=== PATIENT | female | born 1960 | race Two or more races ===

== ENCOUNTER 2019-09-21 07:14 | Day surgery (SDC) | payer MEDICAID ==
[2019-09-13 11:41] LABS: BASOPHILS # (AUTO) 0.1 X10'3 (0-0.2); BASOPHILS % (AUTO) 1.1 % (0-1); EOSINOPHILS # (AUTO) 0.3 X10'3 (0-0.9); EOSINOPHILS % (AUTO) 2.5 % (0-6); LYMPHOCYTES # (AUTO) 3.7 X10'3 (1.1-4.8); LYMPHOCYTES % (AUTO) 28.4 % (21-51); MEAN CORPUSCULAR HEMOGLOBIN 28.8 PG (27.0-31.0); MEAN CORPUSCULAR VOLUME 87.2 FL (78-98); MEAN PLATELET VOLUME 8.7 FL (7.4-10.4); MONOCYTES # (AUTO) 0.9 X10'3 (0-0.9); NEUTROPHILS # (AUTO) 7.9 X10'3 (1.8-7.7); PRE OP HEMOGLOBIN 14.5 g/dL (12.0-16.0); PRE OP PLATELET COUNT 431 X10'3 (140-440); RED BLOOD COUNT 5.04 X10'6 (4.20-5.60)
[2019-09-13 11:51] LABS: ALBUMIN 4.1 G/DL (3.4-5.0); ALBUMIN/GLOBULIN RATIO 0.9 (1.1-1.5); ALKALINE PHOSPHATASE 117 IU/L (46-116); BLOOD UREA NITROGEN 12 MG/DL (7-18); BUN/CREATININE RATIO 17.9 (6.6-38.0); CHLORIDE 104 MMOL/L (99-107); CREATININE 0.67 MG/DL (0.40-0.90); PRE OP ALT 47 U/L (30-65); PRE OP ANION GAP 11 (8-16); PRE OP AST 36 U/L (10-37); PRE OP BILIRUB, TOTAL 0.3 MG/DL (0.0-1.0); PRE OP GLUCOSE 101 MG/DL (70-104); PRE OP POTASSIUM 4.2 MMOL/L (3.4-5.1); PRE OP SODIUM 142 MMOL/L (135-145); TOTAL CARBON DIOXIDE 26.9 MMOL/L (24-32); TOTAL PROTEIN 8.9 G/DL (6.4-8.2); eGFR 90 ML/MIN
[~2019-09-21] VITALS: Ht 152.4 cm; Wt 72.9 kg
[2019-09-21] VITALS (9 sets, daily range): BP systolic 124–149; BP diastolic 67–83
[~2019-09-21 07:14] MED LIST: ATOR40TA72 PO; LISI-600 PO; METF500T PO; NAPR220T67 PO; PANT20TA3 PO; SITA100T11 PO; cefazolin/dext.iso 2gm/50ml 50 ML IV ONE; famotidine 20mg tablet PO ONE; ringers solution, lacted 1,000 ML IV SCH; vancomycin inj 1,500 MG in normal saline 300ml IV soln IV ONE
[2019-09-21] MEDS ORDERED: LIDOcaine 1% (10mg/ml) 2ml vial ONE (07:44)
[2019-09-21] MEDS ORDERED: ringers solution, lacted 1,000 ML IV SCH (08:44)
[2019-09-21] MEDS ORDERED: ondansetron/PF 4mg/2ml inj IV PRN (08:45)
[2019-09-21] MEDS ORDERED: hydrALAZINE 20mg/ml inj. IV PRN (08:45)
[2019-09-21] MEDS ORDERED: labetalol 20mg/4ml (5mg/ml) syringe IV PRN (08:45)
[2019-09-21] MEDS ORDERED: morphine 2 MG/ML inj. syringe IV PRN (08:45)
[2019-09-21] MEDS ORDERED: fentaNYL/PF 50MCG/1 ML 2ML syringe IV PRN ×2 (08:45)
[2019-09-21] MEDS ORDERED: morphine 4 MG/ML inj SYRINge IV PRN (08:45)
[2019-09-21] MEDS ORDERED: triamcinolone acetonide 40mg/ml inj ONE (09:09)
[2019-09-21] MEDS ORDERED: BUPIVAcaine/PF 2.5 mg/ml (0.25%) 30ml vial ONE (09:09)
[2019-09-21] MEDS ORDERED: sevoflurane 250ml liquid IH ONE (09:31)
[2019-09-21] MEDS ORDERED: dexamethasone sod phosphate 10mg/ml inj ONE (09:31)
[2019-09-21] MEDS ORDERED: fentaNYL/PF 50MCG/1 ML 2ML syringe ONE (09:39)
[2019-09-21] MEDS ORDERED: midazolam 2 mg/2 ml injection ONE (09:39)
[2019-09-21] MEDS ORDERED: LIDOcaine 2% (20mg/ml) 5ml vial ONE (09:44)
[2019-09-21] MEDS ORDERED: propofol inj 20 ML IV ONE (09:44)
[2019-09-21] MEDS ORDERED: ondansetron/PF 4mg/2ml inj ONE (09:45)
--- NOTE | 2019-09-21 10:40 | NUR ---
Received from OR via BED , accompanied by Anesthesiologist DR HAMEED and report given by Anesthesiolgist. PATIENT WAKING UP, DENIES PAIN, V/S WNL, NEUROVASCULAR CHECKS INTACT, 20G PIV LUE , DRESSING TO KNEE CDI W/ COLD POWDER PACK
--- NOTE | 2019-09-21 11:50 | NUR ---
PATIENT A&OX4, DENIES PAIN, V/S WNL, NEUROVASCULAR CHECKS INTACT, 20G PIV LUE D/C , DRESSING TO RIGHT KNEE CDI W/ COLD POWDER PACK . I HAVE REVIEWED D/C INSTRUCTIONS WITH PATIENT AND FAMILY AND THEY HAVE VERBALIZED UNDERSTANDING. PATIENT D/C HOME WITH ALL BELONGINGS AND FAMILY GAVE TRANSPORT HOME.
== END 2019-09-21 11:50 | disposition home or self-care (01) ==
LOC: PAS 07:14
PROVIDERS: ATTEND Orthopaedic Surgery
DX: S83.241A Other tear of medial meniscus, current injury, right knee, initial encounter (principal); M25.561 Pain in right knee; I10 Essential (primary) hypertension; K21.9 Gastro-esophageal reflux disease without esophagitis; E78.5 Hyperlipidemia, unspecified; M17.0 Bilateral primary osteoarthritis of knee; E66.8 Other obesity; Z68.35 Body mass index [BMI] 35.0-35.9, adult
CPT/HCPCS: 29873; 29879; 29880; 36415; 80053; 82948; 85025; J1100; J2001; J2250; J2270; J2405; J2704; J3010; J3301; J3370; J3490; A4215; A4618; A6250; A6449; A7000; J7120

== ENCOUNTER 2022-05-08 14:21 | Emergency (ER) | payer MEDICAID ==
[~2022-05-08] VITALS: Ht 152.4 cm; Wt 77.3 kg
[~2022-05-08 14:21] MED LIST changes: -LISI-600 PO; +LISI20TA28 PO; +PANT20TA18 PO; -PANT20TA3 PO; -cefazolin/dext.iso 2gm/50ml 50 ML IV ONE; -famotidine 20mg tablet PO ONE; -ringers solution, lacted 1,000 ML IV SCH; -vancomycin inj 1,500 MG in normal saline 300ml IV soln IV ONE
[2022-05-08 14:50] VITALS: BP 141/70
== END 2022-05-08 19:19 | disposition home or self-care (01) ==
LOC: ER 14:21
DX: S92.901A Unspecified fracture of right foot, initial encounter for closed fracture (principal); E78.00 Pure hypercholesterolemia, unspecified; I10 Essential (primary) hypertension; E11.9 Type 2 diabetes mellitus without complications; Z90.89 Acquired absence of other organs; Z79.899 Other long term (current) drug therapy; W19.XXXA Unspecified fall, initial encounter; Y93.89 Activity, other specified; Y92.89 Other specified places as the place of occurrence of the external cause; Y99.8 Other external cause status
CPT/HCPCS: 29515; 73630; 99283; A6449

== ENCOUNTER 2023-07-17 09:57 | Emergency (ER) | payer MEDICAID ==
[~2023-07-17] VITALS: Ht 152.4 cm; Wt 76.9 kg
[2023-07-17] MEDS ORDERED: ondansetron 4mg rapidly disintigrating tab PO ONE (10:10)
[2023-07-17 10:49] LABS: EOSINOPHILS % (AUTO) 0.7 % (0-6); HEMATOCRIT 43.8 % (35.0-45.0); HEMOGLOBIN 14.4 g/dl (12.0-16.0); LYMPHOCYTES % (AUTO) 5.3 % (21-51); MEAN CORPUSCULAR HEMOGLOBIN 28.8 PG (27.0-31.0); MEAN CORPUSCULAR HGB CONC 32.8 g/dL (33.0-36.5); MEAN CORPUSCULAR VOLUME 87.7 FL (78-98); MEAN PLATELET VOLUME 8.8 FL (7.4-10.4); MONOCYTES % (AUTO) 2.7 % (2-12); NEUTROPHILS % (AUTO) 91.2 % (42-75); PLATELET COUNT 434 X10'3 (140-440); RED BLOOD COUNT 4.99 X10'6 (4.20-5.60); RED CELL DISTRIBUTION WIDTH 14.2 % (11.5-14.5); WHITE BLOOD COUNT 21.4 X10'3 (4.5-11.0)
[2023-07-17 10:50] LABS: BASOPHILS % (AUTO) 0.1 % (0-1); EOSINOPHILS # (AUTO) 0.2 X10'3 (0-0.9); LYMPHOCYTES # (AUTO) 1.1 X10'3 (1.1-4.8); MONOCYTES # (AUTO) 0.6 X10'3 (0-0.9); NEUTROPHILS # (AUTO) 19.5 X10'3 (1.8-7.7)
[2023-07-17 11:02] LABS: ALANINE AMINOTRANSFERASE 37 U/L (12-78); ALBUMIN 3.8 G/DL (3.4-5.0); ALBUMIN/GLOBULIN RATIO 0.7 (1.1-1.5); ALKALINE PHOSPHATASE 119 IU/L (46-116); ANION GAP 9 (8-16); ASPARTATE AMINO TRANSFERASE 22 U/L (10-37); BILIRUBIN,TOTAL 0.5 MG/DL (0.1-1.0); BLOOD UREA NITROGEN 13 MG/DL (7-18); BUN/CREATININE RATIO 17.1 (10.0-20.0); CALCIUM 9.6 MG/DL (8.5-10.1); CHLORIDE 102 MMOL/L (99-107); CREATININE 0.76 MG/DL (0.40-0.90); GLUCOSE 172 MG/DL (70-104); LIPASE 42 U/L (16-77); POTASSIUM 4.1 MMOL/L (3.5-5.1); SODIUM 138 MMOL/L (135-145); TOTAL CARBON DIOXIDE 27.3 MMOL/L (24-32); eCRCL 55 ML/MIN; eGFR 77 ML/MIN
[2023-07-17 11:51] LABS: BILIRUBIN,URINE NEGATIVE (Neg); CLARITY,URINE CLOUDY (Clear); COLOR,URINE YELLOW (Yellow); GLUCOSE, URINE NEGATIVE (Neg); KETONES,URINE NEGATIVE (Neg); LEUKOCYTE ESTERASE ,URINE NEGATIVE (Neg); NITRITES, URINE NEGATIVE (Neg); OCCULT BLOOD,URINE SMALL (Neg); PH,URINE 5.5 (4.8-8.0); PROTEIN,URINE 30 mg/dl (Neg); UROBILINOGEN,URINE 0.2 E.U/dL (0.2-1.0)
[2023-07-17 11:56] LABS: UA COLLECTION TYPE CLN CATCH MIDSTREAM
[2023-07-17 11:57] LABS: HYALINE CASTS 0-3 /LPF (NEGATIVE); MUCUS STRANDS MANY /LPF (Neg); SQUAMOUS EPITHELIAL CELL,UR MANY /LPF (FEW)
[2023-07-17 11:58] LABS: BACTERIA,URINE 1+ /HPF (Neg); RBC,URINE 0-2 /HPF (0-2); TRANSITIONAL EPI CELLS,URINE MANY /HPF; WBC,URINE 0-4 /HPF (0-4)
[2023-07-17] MEDS ORDERED: iohexol 350MG/ML 100ml bottle IV ONE (13:06)
[2023-07-17 13:56] VITALS: BP 121/58; PULSE 96; RESP 17; TEMP 98; O2SAT 98
[2023-07-17] MEDS ORDERED: normal saline 1000ML IV soln IVB ONE (15:25)
[2023-07-17] MEDS ORDERED: ONDA4TAB12 PO (15:59)
== END 2023-07-17 16:14 | disposition home or self-care (01) ==
LOC: ER 09:58
DX: R10.13 Epigastric pain (principal); D72.829 Elevated white blood cell count, unspecified; R11.2 Nausea with vomiting, unspecified; E78.00 Pure hypercholesterolemia, unspecified; I10 Essential (primary) hypertension; Z90.49 Acquired absence of other specified parts of digestive tract; Z79.899 Other long term (current) drug therapy
CPT/HCPCS: 36415; 74177; 80053; 81001; 83690; 85025; 96360; 99285; J3490; J7030; Q9967

== ENCOUNTER 2023-11-11 11:19 | Outpatient (CLI) | payer MEDICAID ==
[~2023-11-11 11:19] MED LIST changes: +ONDA4TAB12 PO
== END 2023-11-11 23:59 | disposition home or self-care (01) ==
LOC: RAD 11:19
PROVIDERS: ATTEND Family Medicine
DX: M25.561 Pain in right knee (principal)
CPT/HCPCS: 73560

== ENCOUNTER 2024-08-23 13:35 | Day surgery (SDC) | payer OTHER ==
[2024-08-22 15:55] LABS: BASOPHILS # (AUTO) 0.1 X10'3 (0-0.2); BASOPHILS % (AUTO) 0.8 % (0-1); EOSINOPHILS # (AUTO) 0.1 X10'3 (0-0.9); EOSINOPHILS % (AUTO) 1.1 % (0-6); LYMPHOCYTES # (AUTO) 4.1 X10'3 (1.1-4.8); LYMPHOCYTES % (AUTO) 33.9 % (21-51); MEAN CORPUSCULAR HEMOGLOBIN 29.5 PG (27.0-31.0); MEAN CORPUSCULAR HGB CONC 33.4 g/dL (33.0-36.5); MEAN CORPUSCULAR VOLUME 88.2 FL (78-98); MEAN PLATELET VOLUME 7.8 FL (7.4-10.4); MONOCYTES # (AUTO) 0.8 X10'3 (0-0.9); MONOCYTES % (AUTO) 6.3 % (2-12); NEUTROPHILS % (AUTO) 57.9 % (42-75); PRE OP HEMATOCRIT 41.6 % (35.0-45.0); PRE OP HEMOGLOBIN 13.9 g/dL (12.0-16.0); PRE OP PLATELET COUNT 501 X10'3 (140-440); RED BLOOD COUNT 4.72 X10'6 (4.20-5.60); RED CELL DISTRIBUTION WIDTH 13.8 % (11.5-14.5)
[2024-08-22 16:23] LABS: ALBUMIN 3.7 G/DL (3.4-5.0); ALBUMIN/GLOBULIN RATIO 0.7 (1.1-1.5); ALKALINE PHOSPHATASE 95 IU/L (46-116); BLOOD UREA NITROGEN 16 MG/DL (7-18); BUN/CREATININE RATIO 23.5 (10.0-20.0); CALCIUM 9.5 MG/DL (8.5-10.1); CHLORIDE 100 MMOL/L (99-107); CREATININE 0.68 MG/DL (0.40-0.90); PRE OP ALT 57 U/L (30-65); PRE OP ANION GAP 6 (8-16); PRE OP AST 40 U/L (10-37); PRE OP BILIRUB, TOTAL 0.3 MG/DL (0.0-1.0); PRE OP GLUCOSE 107 MG/DL (70-104); PRE OP POTASSIUM 3.8 MMOL/L (3.4-5.1); PRE OP SODIUM 137 MMOL/L (135-145); TOTAL CARBON DIOXIDE 30.6 MMOL/L (24-32); TOTAL PROTEIN 8.8 G/DL (6.4-8.2); eGFR 87 ML/MIN
[2024-08-23] VITALS (13 sets, daily range): BP systolic 111–146; BP diastolic 48–84; PULSE 77–98; RESP 12–17; TEMP 97.9; O2SAT 10–100
[~2024-08-23] VITALS: Ht 151.1 cm; Wt 63.5 kg
[~2024-08-23 13:35] MED LIST changes: -METF500T PO; -NAPR220T67 PO; -ONDA4TAB12 PO; -PANT20TA18 PO; +PIOG45TA5 PO; -SITA100T11 PO; +TIRZ2.5P SQ; +famotidine 20mg tablet PO ONE; +ringers solution, lacted 1,000 ML IV SCH
[2024-08-23] MEDS ORDERED: BUPIVAcaine/PF 2.5mg/ml (0.25%) 10ml vial ONE (13:50)
[2024-08-23] MEDS: ceFAZolin 2gm in dextrose, iso 50 ML IV ONE (14:16)
[2024-08-23] MEDS ORDERED: sevoflurane 250ml liquid IH ONE (15:31)
[2024-08-23] MEDS ORDERED: midazolam 1 mg/ML 2ml injection ONE (15:40)
[2024-08-23] MEDS ORDERED: 0.9 % SODIUM CHLORIDE 10 ML VIAL ONE ×2 (16:06)
[2024-08-23] MEDS ORDERED: LIDOcaine 2% (20mg/ml) 5ml vial ONE (16:06)
[2024-08-23] MEDS ORDERED: propofol inj 20 ML IV ONE (16:06)
[2024-08-23] MEDS ORDERED: fentaNYL/PF 50MCG/1 ML 2ML syringe ONE (16:06)
[2024-08-23] MEDS ORDERED: ROPIVAcaine 0.5% (5mg/ml) 30ml vial ONE (16:06)
[2024-08-23] MEDS ORDERED: dexamethasone sod phosphate 4mg/ml inj. ONE ×2 (16:06→16:24)
[2024-08-23] MEDS ORDERED: ondansetron/PF 4mg/2ml inj IV PRN (16:10)
[2024-08-23] MEDS ORDERED: meperidine/PF 25mg/ml syringe IV PRN ×2 (16:10)
[2024-08-23] MEDS ORDERED: hydrALAZINE 20mg/ml inj. IV PRN (16:10)
[2024-08-23] MEDS ORDERED: acetaminophen 1,000mg/100ml IV 100 ML IV PRN (16:10)
[2024-08-23] MEDS ORDERED: ringers solution, lacted 1,000 ML IV SCH (16:10)
[2024-08-23] MEDS ORDERED: morphine 4 MG/ML inj SYRINge IV PRN (16:10)
[2024-08-23] MEDS ORDERED: labetalol 20mg/4ml (5mg/ml) syringe IV PRN (16:10)
[2024-08-23] MEDS ORDERED: proCHLORperazine 10 MG/2 ml inj IV PRN (16:10)
[2024-08-23] MEDS ORDERED: ondansetron/PF 4mg/2ml inj ONE (16:24)
[2024-08-23] MEDS ORDERED: morphine 10mg/ml inj. ONE (18:02)
[2024-08-23] MEDS ORDERED: acetaminophen 1,000mg/100ml IV 100 ML IV ONE (18:02)
[2024-08-23] MEDS: meperidine/PF 25mg/ml syringe IV PRN (18:10)
[2024-08-23] MEDS: morphine 2 MG/ML inj. syringe IV PRN (18:41)
== END 2024-08-23 19:47 | disposition home or self-care (01) ==
LOC: PRE-OP 13:35
PROVIDERS: ATTEND Orthopaedic Surgery
DX: S82.842A Displaced bimalleolar fracture of left lower leg, initial encounter for closed fracture (principal); I10 Essential (primary) hypertension; E11.9 Type 2 diabetes mellitus without complications; E78.5 Hyperlipidemia, unspecified; G89.18 Other acute postprocedural pain; F17.210 Nicotine dependence, cigarettes, uncomplicated; E66.9 Obesity, unspecified; Z68.45 Body mass index [BMI] 70 or greater, adult; Z90.710 Acquired absence of both cervix and uterus; Z98.890 Other specified postprocedural states; Z79.899 Other long term (current) drug therapy; W01.0XXA Fall on same level from slipping, tripping and stumbling without subsequent striking against object, initial encounter; Y93.89 Activity, other specified; Y92.89 Other specified places as the place of occurrence of the external cause; Y99.8 Other external cause status
CPT/HCPCS: 27814; 36415; 64450; 73600; 80053; 82948; 85025; 93005; C1713; J0131; J0690; J0735; J1100; J2003; J2175; J2250; J2270; J2274; J2405; J2704; J2795; J3010; J7030; J7120; Z7506; Z7508; Z7512; 76000; A4215; A4618; A6449; A7000; J3490